=== PATIENT | female | born 1985 | race Two or more races ===

== ENCOUNTER 2020-01-30 14:09 | Outpatient (REF) | payer OTHER, SELFPAY | END 2020-01-30 14:10 | disposition home or self-care (01) | LOC: HO.LAB 14:09 | PROVIDERS: Visit Provider Internal Medicine | DX: Z20.828 Contact with and (suspected) exposure to other viral communicable diseases (principal) | CPT/HCPCS: C9803; U0003 ==

== ENCOUNTER → 2020-09-17 10:51 | Outpatient (BNVA) | payer OTHER, SELFPAY | PROVIDERS: PCP Internal Medicine; Visit Provider Physician Assistant Medical | DX: S63.601A Unspecified sprain of right thumb, initial encounter (principal); S63.501A Unspecified sprain of right wrist, initial encounter; X50.3XXA Overexertion from repetitive movements, initial encounter | CPT/HCPCS: 29125; 73120; 99203 ==

== ENCOUNTER → 2020-09-21 07:44 | Outpatient (BNVA) | payer OTHER, SELFPAY | PROVIDERS: PCP Internal Medicine; Visit Provider Physician Assistant Medical | DX: S63.601A Unspecified sprain of right thumb, initial encounter (principal); S63.501A Unspecified sprain of right wrist, initial encounter; X58.XXXA Exposure to other specified factors, initial encounter | CPT/HCPCS: 99213 ==

== ENCOUNTER → 2020-10-04 08:28 | Outpatient (BNVA) | payer OTHER, SELFPAY | PROVIDERS: PCP Internal Medicine; Visit Provider Physician Assistant Medical | DX: S63.601D Unspecified sprain of right thumb, subsequent encounter (principal); S63.501D Unspecified sprain of right wrist, subsequent encounter; X58.XXXD Exposure to other specified factors, subsequent encounter | CPT/HCPCS: 99213 ==

== ENCOUNTER 2020-10-11 08:00 | Outpatient (RCR) | payer OTHER, SELFPAY ==
--- NOTE | 2020-11-26 08:40 | MHC.OT.DC ---
[address] [phone] F: [phone] Occupational Therapy Discharge Note Provider: Vannesa Celis PA-C Diagnosis: Right thumb/ wrist sprain Date of Surgery: Date of Evaluation: 09/24/20 Date of Discharge: Treatments to Date: 6 Cancellations to Date: No Shows to Date: Discharge Status: Improved Function Discharge Summary: Pt reports dec pain with night orthosis , Rock tape at base of thumb and CFB. Cont pain with washing hair and other mod heavy daily activities. Pt has not scheduled for follow up appt Electronically Signed By: salima Atkinson OT CHT CLT Reviewed/agree with student documentation: N/A Therapist: Please Sign and return to therapist, thank you for your referral.
== END 2020-11-26 09:50 | disposition home or self-care (01) ==
LOC: HO.OT 08:00
PROVIDERS: Visit Provider Physician Assistant Medical
DX: S63.501D Unspecified sprain of right wrist, subsequent encounter (principal); S63.601D Unspecified sprain of right thumb, subsequent encounter
CPT/HCPCS: 29130; 97033; 97035; 97110; 97140; 97165; 97760

== ENCOUNTER → 2020-10-18 08:03 | Outpatient (BNVA) | payer OTHER, SELFPAY | PROVIDERS: PCP Internal Medicine; Visit Provider Physician Assistant Medical | DX: S69.91XD Unspecified injury of right wrist, hand and finger(s), subsequent encounter (principal); S63.501D Unspecified sprain of right wrist, subsequent encounter; X58.XXXD Exposure to other specified factors, subsequent encounter | CPT/HCPCS: 99213 ==

== ENCOUNTER → 2020-10-24 13:47 | Outpatient (BNVA) | payer OTHER, SELFPAY | PROVIDERS: PCP Internal Medicine; Visit Provider Orthopaedic Surgery | DX: M79.641 Pain in right hand (principal); Z88.0 Allergy status to penicillin; Z91.041 Radiographic dye allergy status | CPT/HCPCS: 99202 ==

== ENCOUNTER → 2020-10-30 08:03 | Outpatient (BNVA) | payer OTHER, SELFPAY | PROVIDERS: PCP Internal Medicine; Visit Provider Physician Assistant Medical | DX: S63.601D Unspecified sprain of right thumb, subsequent encounter (principal); S63.501D Unspecified sprain of right wrist, subsequent encounter; X58.XXXD Exposure to other specified factors, subsequent encounter | CPT/HCPCS: 99213 ==

== ENCOUNTER → 2020-11-23 10:00 | Outpatient (BNVA) | payer OTHER, SELFPAY | PROVIDERS: PCP Internal Medicine; Visit Provider Physician Assistant Medical | DX: S63.601A Unspecified sprain of right thumb, initial encounter (principal); S63.501A Unspecified sprain of right wrist, initial encounter; X58.XXXA Exposure to other specified factors, initial encounter | CPT/HCPCS: 99213 ==